=== PATIENT | male | born 1975 | race African-American/Black ===

== ENCOUNTER 2017-05-12 00:26 | Emergency (ER) | payer OTHER ==
[~2017-05-12] VITALS: Ht 180.3 cm; Wt 116.4 kg
[~2017-05-12 00:26] MED LIST: CYCL-36 PO; DILA8TAB4 PO; HYDR12.56 PO; LISI-363 PO; RANI150 PO
[2017-05-12 00:31] VITALS: BP 136/83; PULSE 103; RESP 16; TEMP 97.9; O2SAT 99
[2017-05-12] MEDS ORDERED: CYCL1TAB29 PO (00:45)
[2017-05-12] MEDS ORDERED: LISI-515 PO (00:45)
[2017-05-12] MEDS ORDERED: HYDR25TA5 PO (00:45)
[2017-05-12] MEDS ORDERED: ZANT150T2 PO (00:45)
[2017-05-12] MEDS ORDERED: NEUR100C PO (00:45)
--- NOTE | 2017-05-12 01:00 | PD ---
HPI Chief Complaint: Musculoskeletal Complaint Time Seen by Provider: 00:54 Travel History International Travel<30 days: No Contact w/Intl Traveler<30days: No Traveled to known affect area: No History of Present Illness HPI The patient is a 42-year-old male with a history of cocaine, alcohol and marijuana abuse who complains of left foot pain for about a week. There is no injury, trauma, swelling or redness to the foot. His pain is mostly around the left fifth metatarsal and fifth toe. He does not have a history of diabetes. He claims a pain level of 8/10. The patient does have chronic back pain and he takes gabapentin for this. He plans to have surgery on his back shortly. [facility] Past Medical History Hypertension: Yes Musculoskeletal: Yes (CHRONIC BACK PAIN) Immunizations Current: No ?: Not Past Surgical History Other Surgery: Yes (CYST REMOVED) Social History Alcohol Use: No Tobacco Use: Yes (1 PPD X 13 YEARS) Substance Use: Yes (marijuana ) Allergies-Medications (Allergen,Severity, Reaction): Coded Allergies: No Known Allergies (Verified , 05/12/17) Reported Meds & Prescriptions Reported Meds & Active Scripts Active Fungi-Nail Topical (Undecylenic Acid) 25 % Alexandra 1 Applic TOPICAL BID 28 Days Reported Neurontin (Gabapentin) 100 Mg Cap 100 Mg PO HS Hydrochlorothiazide 25 Mg Tab 25 Mg PO DAILY Zantac (Ranitidine HCl) 150 Mg Tab 150 Mg PO DAILY Lisinopril 20 Mg Tab 20 Mg PO DAILY Flexeril (Cyclobenzaprine HCl) 10 Mg Tab 10 Mg PO TID Review of Systems Except as stated in HPI: all other systems reviewed are Neg Physical Exam Narrative GENERAL: Well-nourished, well-developed patient in minimal apparent distress. His vital signs show heart rate of 103 but the rest the vital signs are normal. SKIN: Focused skin assessment warm/dry. The patient has tenia pedis between the left fourth and fifth toes in the intertriginous area. HEAD: Normocephalic. EYES: No scleral icterus. No injection or drainage. NECK: Supple, trachea midline. No JVD or lymphadenopathy. CARDIOVASCULAR: Regular rate and rhythm without murmurs, gallops, or rubs. RESPIRATORY: Breath sounds equal bilaterally. No accessory muscle use. GASTROINTESTINAL: Abdomen soft, non-tender, nondistended. MUSCULOSKELETAL: No cyanosis, or edema. There is no swelling, deformity, erythema of the left foot or left toe but there is tenderness near the fifth metatarsal and fifth toe. BACK: Nontender without obvious deformity. No CVA tenderness. Data Data Last Documented VS Vital Signs Date Time Temp Pulse Resp B/P (MAP) Pulse Ox O2 Delivery O2 Flow Rate FiO2 05/12/17 00:31 97.9 103 16 136/83 (100) 99 Orders Orders Foot, Complete ([id number]) (05/12/17 ) MDM Medical Decision Making Medical Screen Exam Complete: Yes Emergency Medical Condition: Yes Medical Record Reviewed: Yes Differential Diagnosis Peripheral neuropathy, stress fracture, drug seeking behavior, tinea pedis Narrative Course The patient likely has some peripheral neuropathy and he will take gabapentin for this. He plans to have surgery on his back shortly to resolve this problem. The patient also has T pedis and this appears somewhat painful as well. Diagnosis Primary Impression: Tinea pedis Additional Impression: Neuropathy, peripheral Med/Other Pt SpecificInfo: Prescription(s) given Scripts Ibuprofen (Ibuprofen) 800 Mg Tab 800 MG PO TID, #44 TAB 0 Refills Prov: Henri Mcintosh MD 05/12/17 Undecylenic Acid Topical (Fungi-Nail Topical) 25 % Alexandra 1 APPLIC TOPICAL BID for Infection for 28 Days, BOTTLE 0 Refills Prov: Henri Mcintosh MD 05/12/17 Disposition: 01 DISCHARGE HOME Condition: Stable Henri Mcintosh MD May 12, 2017 01:00
[2017-05-12] MEDS ORDERED: [UNRECOGNIZED DRUG - CODE] TOPICAL (01:31)
--- NOTE | 2017-05-12 01:33 | RADRPT ---
EXAM DATE/TIME: 05/12/2017 00:54 [facility] COMPARISON: No previous studies available for comparison. INDICATIONS : Left foot pain. No injury. MEDICAL HISTORY : None. SURGICAL HISTORY : None. ENCOUNTER: Initial ACUITY: 3 days PAIN SCORE: 6/10 LOCATION: Left lateral FINDINGS: Three view examination of the left foot demonstrates no soft tissue swelling, dislocation, or fractur e. The tarsal bones appear intact. The interphalangeal and metatarsophalangeal joints are intact. The calcaneus is intact. Bony mineralization is normal. CONCLUSION: 1. There is no evidence of acute fracture. Osiel Palacios MD on May 12, 2017 at 1:31 Board Certified Radiologist. This report was verified electronically.
[2017-05-12] MEDS ORDERED: IBUP800T23 PO (01:42)
[2017-05-12] MEDS ORDERED: KETOROLAC TROMETHAMINE 60 MG/2 ML (IM) VIAL IM ONE (01:45)
== END 2017-05-12 02:11 | disposition home or self-care (01) ==
LOC: PHED 00:26
DX: B35.3 Tinea pedis (principal); G62.9 Polyneuropathy, unspecified; I10 Essential (primary) hypertension; F17.200 Nicotine dependence, unspecified, uncomplicated; F12.10 Cannabis abuse, uncomplicated
CPT/HCPCS: 73630; 96372; 99284; J1885